=== PATIENT | female | born 1990 | race Caucasian/White ===

== ENCOUNTER 2024-08-14 15:52 | Emergency (ER) | payer BC ==
[~2024-08-14] VITALS: Ht 170.2 cm; Wt 78.5 kg
[2024-08-14 16:03] VITALS: BP_SYST 132; PULSE 106; RESP 20; TEMP 97.6; O2SAT 98
[2024-08-14] MEDS: EPINEPHRINE HCL/PF 1 MG/ML AMP IM ONE (16:49)
[2024-08-14] MEDS ORDERED: EPIN0.3P3 IM (17:21)
[2024-08-14 17:51] VITALS: BP_SYST 101; PULSE 106; RESP 19; TEMP 97.6; O2SAT 99
== END 2024-08-14 17:54 | disposition home or self-care (01) ==
LOC: SED 15:52
DX: L50.9 Urticaria, unspecified (principal); Z79.899 Other long term (current) drug therapy
CPT/HCPCS: 99283; 96372; J0171

== ENCOUNTER 2024-08-14 19:46 | Emergency (ER) | payer BC ==
[~2024-08-14] VITALS: Ht 170.2 cm; Wt 78.5 kg
[~2024-08-14 19:46] MED LIST: EPIN0.3P3 IM
[2024-08-14 20:11] VITALS: BP_SYST 112; PULSE 104; PULSE 113; PULSE 73; RESP 20; TEMP 98; O2SAT 98
[2024-08-14] MEDS: FAMOTIDINE 20 MG TABLET PO ONE (21:45)
[2024-08-14] MEDS: LORATADINE 10 MG TABLET PO ONE (21:45)
[2024-08-14] MEDS: DEXAMETHASONE SOD PHOSPHATE 10 MG/ML VIAL IM ONE (21:46)
[2024-08-14 23:17] VITALS: BP_SYST 100; PULSE 82; RESP 17; TEMP 98; O2SAT 98
== END 2024-08-14 23:17 | disposition home or self-care (01) ==
LOC: SED 19:46
DX: L50.0 Allergic urticaria (principal); T78.49XA Other allergy, initial encounter; Z79.52 Long term (current) use of systemic steroids; X58.XXXA Exposure to other specified factors, initial encounter
CPT/HCPCS: 99283; 96372; J1100